=== PATIENT | female | born 1995 | race Caucasian/White ===

== ENCOUNTER 2020-07-10 09:35 | Emergency (ER) | payer OTHER ==
[~2020-07-10] VITALS: Ht 172.7 cm; Wt 72.6 kg
== END 2020-07-10 10:00 | disposition home or self-care (01) ==
LOC: ER 09:38
DX: O26.92 Pregnancy related conditions, unspecified, second trimester (principal); R10.13 Epigastric pain
CPT/HCPCS: 99282